=== PATIENT | female | born 1975 | race Hispanic/Latino ===

== ENCOUNTER 2021-03-26 12:13 | Emergency (ER) | payer OTHER, SELFPAY ==
[2021-03-26 13:25] LABS: #Basophils 0.1 10x3/uL (0.0-0.2); #Eosinphils 0.5 10x3/uL (0.0-0.5); #Monocytes 0.4 10x3/uL (0.0-1.1); #Neutrophils 4.8 10x3/uL (1.5-8.4); %Basophils 0.7 % (0.0-2.0); %Eosinophils 6.3 % (0.0-6.0); %Lymphocytes 28.7 % (18.0-47.0); %Monocytes 4.8 % (0.0-10.0); %Neutrophils 59.3 % (40.0-75.0); Hemoglobin 13.8 g/dL (12.0-15.5); Mean Corpuscular Hemoglobin 29.2 pg (27.0-33.0); Platelet Count 275 10x3/uL (150-450); RBC Distribution Width 13.3 % (11.5-14.5); Red Blood Cell (RBC) Count 4.72 10x6/uL (3.90-5.03); White Blood Cell (WBC) Count 8.2 10x3/uL (3.5-10.5)
[2021-03-26] MEDS ORDERED: Metoclopramide HCl 10 MG/2 ML VIAL ONE (13:33)
[2021-03-26] MEDS ORDERED: diphenhydrAMINE 50 MG/ML VIAL ONE (13:33)
[2021-03-26 13:36] LABS: ALT (SGPT) 15 U/L (8-55); AST (SGOT) 14 U/L (5-34); Albumin 4.7 g/dL (3.5-5.0); Alkaline Phosphatase 105 U/L (40-110); Anion Gap 13 mmol/L (10-20); BUN (Urea Nitrogen) 9 mg/dL (7.0-18.7); Bilirubin, Total 0.9 mg/dL (0.2-1.2); Calc. Creatinine Clearance 0 mL/min (70-130); Carbon Dioxide 28 mmol/L (22-29); Chloride 103 mmol/L (98-107); Globulin 2.8 g/dL (2.4-3.5); Glucose 114 mg/dL (70-105); Protein, Total 7.5 g/dL (6.0-8.3); Sodium 141 mmol/L (136-145)
== END 2021-03-26 14:44 | disposition home or self-care (01) ==
LOC: CSHERS 12:13
DX: G43.909 Migraine, unspecified, not intractable, without status migrainosus (principal); I10 Essential (primary) hypertension; Z79.899 Other long term (current) drug therapy
CPT/HCPCS: 70496; 71045; 80053; 84484; 85025; 93005; 96374; 96375; J1200; J2765

== ENCOUNTER 2024-09-28 23:14 | Emergency (ER) | payer SELFPAY ==
[2024-09-28 23:57] LABS: #Basophils 0.10 10x3/uL (0.0-0.2); #Eosinophils 0.81 10x3/uL (0.0-0.5); #Monocytes 0.71 10x3/uL (0.0-1.1); #Neutrophils 9.73 10x3/uL (1.5-8.4); %Basophils 0.7 % (0.0-2.0); %Eosinophils 5.3 % (0.0-6.0); %Lymphocytes 25.6 % (18.0-47.0); %Monocytes 4.6 % (0.0-10.0); %Neutrophils 63.4 % (40.0-75.0); Hematocrit 35.6 % (34.9-44.5); Hemoglobin 12.0 g/dL (12.0-15.5); Mean Corpuscular Hemoglobin 28.2 pg (27.0-33.0); Mean Corpuscular Volume 83.6 fL (81.6-98.3); Platelet Count 291 10x3/uL (150-450); Red Blood Cell (RBC) Count 4.26 10x6/uL (3.90-5.03); White Blood Cell (WBC) Count 15.33 10x3/uL (3.5-10.5)
[2024-09-29 00:23] LABS: ALT (SGPT) 25 U/L (Less than 34); AST (SGOT) 25 U/L (11-34); Albumin 4.1 g/dL (3.1-4.5); Alkaline Phosphatase 122 U/L (40-110); Anion Gap 17 mmol/L (10-20); BUN (Urea Nitrogen) 14 mg/dL (7.0-18.7); Bilirubin, Total 0.3 mg/dL (0.3-1.2); Calc. Creatinine Clearance 0 mL/min (70-130); Calcium 8.6 mg/dL (7.8-10.44); Carbon Dioxide 24 mmol/L (22-29); Chloride 100 mmol/L (98-107); Globulin 3.3 g/dL (2.4-3.5); Glucose 117 mg/dL (70-105); Potassium 3.0 mmol/L (3.5-5.1); Sodium 138 mmol/L (136-145)
[2024-09-29 00:29] LABS: Troponin I Less than 0.010 ng/mL (< 0.028)
[2024-09-29] MEDS ORDERED: Lidocaine Viscous Sol 2% 15 ml UD Cup ONE (02:47)
[2024-09-29] MEDS ORDERED: Milk Of Magnesia 30 ML UDCUP ONE (02:48)
[2024-09-29 04:05] LABS: Troponin I Less than 0.010 ng/mL (< 0.028)
== END 2024-09-29 04:34 | disposition home or self-care (01) ==
LOC: CSHERS 23:14
DX: R07.89 Other chest pain (principal); I10 Essential (primary) hypertension; Z79.899 Other long term (current) drug therapy
CPT/HCPCS: 36415; 71045; 80053; 83690; 84484; 85025; 93005